=== PATIENT | female | born 1975 | race African-American/Black ===

== ENCOUNTER 2017-03-31 20:45 | Emergency (ER) | payer BC | END 2017-03-31 21:57 | disposition home or self-care (01) | LOC: ERS 20:45 | DX: B34.9 Viral infection, unspecified (principal); I10 Essential (primary) hypertension | CPT/HCPCS: 99283 ==

== ENCOUNTER 2018-08-27 14:12 | Emergency (ER) | payer MEDICAID ==
[2018-08-27] MEDS ORDERED: Ondansetron PF 4 MG/2 ML Vial ONE (14:53)
[2018-08-27] MEDS ORDERED: Ketorolac Tromethamine 30 MG/ML VIAL ONE (14:53)
[2018-08-27 15:27] LABS: #Basophils 0.1 thou/uL (0.0-0.2); #Eosinphils 0.1 thou/uL (0.0-0.7); #Lymphocytes 3.1 thou/uL (1.20-3.40); #Monocytes 0.6 thou/uL (0.11-0.59); #Neutrophils 7.2 thou/uL (1.40-6.50); %Basophils 1.1 % (0.0-1.0); %Eosinophils 0.7 % (0.0-10.0); %Lymphocytes 28.1 % (21.0-51.0); %Monocytes 5.8 % (0.0-10.0); %Neutrophils 64.3 % (42.0-75.0); Mean Corpuscular HGB CONC 32.6 g/dL (32.0-36.0); Mean Corpuscular Hemoglobin 29.4 pg (27.0-31.0); Mean Corpuscular Volume 90.3 fL (78.0-98.0); Mean Platelet Volume 7.4 fL (7.4-10.4); Platelet Count 330 thou/uL (130-400); RBC Distribution Width 13.3 % (11.5-14.5); Red Blood Cell (RBC) Count 4.74 mill/uL (4.20-5.40); White Blood Cell (WBC) Count 11.1 thou/uL (4.8-10.8)
[2018-08-27 15:35] LABS: Bilirubin Negative (Negative); Blood, Urine Negative (Negative); Clarity Clear (Clear); Glucose, Urine (Dipstick) Negative (Negative); Leukocyte Negative (Negative); Nitrite Negative (Negative); Protein, Urine (Dipstick) Trace mg/dL (Neg-Trace); Specific Gravity, Urine 1.025 (1.005-1.030); pH, Urine 6.5 (5.0-9.0)
[2018-08-27 15:36] LABS: Pregu Control Background? CLEAR/WHITE (CLR/WHITE); Pregu Control Bar Appear? YES (CONTROL BAR); Specific Gravity 1.025 (1.002-1.036)
[2018-08-27 15:40] LABS: Pregnancy Test - Urine (BHCG) Negative (Negative)
[2018-08-27 15:42] LABS: ALT (SGPT) 16 U/L (8-55); Alkaline Phosphatase 97 U/L (40-150); Anion Gap 12 mmol/L (10-20); BUN (Urea Nitrogen) 12 mg/dL (7.0-18.7); Bilirubin, Total 0.4 mg/dL (0.2-1.2); Calc. Creatinine Clearance 0 mL/min (70-130); Calcium 9.4 mg/dL (7.8-10.44); Carbon Dioxide 23 mmol/L (22-29); Chloride 107 mmol/L (98-107); Estimated GFR-MDRD Greater than 90; Globulin 3.9 g/dL (2.4-3.5); Glucose 98 mg/dL (70-105); Lipase 23 U/L (8-78); Protein, Total 7.9 g/dL (6.0-8.3); Sodium 138 mmol/L (136-145)
[2018-08-27 15:44] LABS: AST (SGOT) 20 U/L (5-34)
--- NOTE | 2018-08-27 16:08 | CT ---
CT Abdomen Pelvis WO Con 08/27/2018 2:39 PM HISTORY: Lower abdominal pain with nausea vomiting and diarrhea. COMPARISON: None. Technique: Multiple contiguous axial images were obtained and a CT of the abdomen and pelvis without IV contrast . Coronal reformats were performed. FINDINGS: This examination is limited for the evaluation of solid organs and vascular structures due to the lac k of intravenous contrast. Lower Chest: Calcified granuloma is seen at the left lung base. Lung bases are otherwise clear. Abdomen: Liver: within normal limits. Gallbladder: Postcholecystectomy changes noted. Pancreas: within normal limits. Spleen: Calcified granulomata seen. Adrenals: within normal limits. Kidneys: A 2 to 3 mm nonobstructing calculus midportion left kidney is seen. No right renal calculus is present. There is no hydronephrosis. Pelvis: Reproductive Organs: No pelvic masses. Ureters: No ureteral calculus is seen, and there is no dilatation of either ureter. Bladder: Within normal limits for incompletely distended appearance of the urinary bladder. Bowel: Normal caliber.The appendix is normal in caliber. Lymph Nodes: No enlarged lymph nodes. Peritoneum: No free fluid, free air, or fluid collection. Vessels: Abdominal aorta is normal in caliber.. Retroperitoneum: within normal limits. Abdominal Wall: within normal limits. Bones: There is prominent small node in the superior endplate T12 vertebral body. No lytic or sclerot ic osseous lesions are seen. IMPRESSION: 1. Punctate nonobstructing left renal calculus. No ureteral calculus is seen, there is no hydronephro sis. 2. Postcholecystectomy changes. 3. No CT evidence of appendicitis.
== END 2018-08-27 16:20 | disposition home or self-care (01) ==
LOC: SCSER 14:12
DX: R11.2 Nausea with vomiting, unspecified (principal); R10.9 Unspecified abdominal pain; I10 Essential (primary) hypertension; Z79.899 Other long term (current) drug therapy
CPT/HCPCS: 74176; 80053; 81003; 81025; 83605; 83690; 85025; 96361; 96374; 96375; J1885; J2405

== ENCOUNTER 2022-04-11 08:25 | Outpatient (CLI) | payer BC | END 2022-04-11 08:26 | disposition home or self-care (01) | LOC: BICRAD 08:25 | PROVIDERS: ATTEND Family Medicine | DX: M25.552 Pain in left hip (principal) ==

== ENCOUNTER 2024-12-25 14:53 | Outpatient (CLI) | payer BC | END 2024-12-25 14:54 | disposition home or self-care (01) | LOC: BICMAMMO 14:53 | PROVIDERS: ATTEND Family Medicine | DX: Z12.31 Encounter for screening mammogram for malignant neoplasm of breast (principal) | CPT/HCPCS: 77063; 77067 ==

== ENCOUNTER 2025-03-27 15:35 | Outpatient (CLI) | payer BC | END 2025-03-27 15:36 | disposition home or self-care (01) | LOC: BICRAD 15:35 | PROVIDERS: ATTEND Family Medicine | DX: M25.572 Pain in left ankle and joints of left foot (principal) ==